=== PATIENT | male | born 1945 | race Caucasian/White ===

== ENCOUNTER → 2017-03-26 | Outpatient (CLI) | payer OTHER ==
[~2017-03-26] MED LIST: ASPEC81 PO; ATOR10TA82 PO; AVD5 PO; CHOL100010 PO; CLB200 PO; FBR PO; LSN5 PO; TRAM-10 PO; compound cream
--- NOTE | 2017-03-26 09:39 | DIAGNOSTIC IMAGING REPORT ---
R KNEE 1 OR 2 VIEWS ROUTINE CLINICAL HISTORY: Bilateral knee pain. COMPARISON: None FINDINGS: Alignment of the right knee is anatomic. No fractures identified. There is a possible small right knee joint effusion. There is moderate medial compartment joint space narrowing with osteophytosis. There is also joint space narrowing with osteophytosis of the patellofemoral compartment. IMPRESSION: 1. No acute fracture. 2. Moderate osteoarthritis within the medial and patellofemoral compartments of the right knee. 3. Possible small right knee joint effusion. Electronically signed by: Sharath Berry M.D. 03/26/2017 9:37 AM Dictated Date/Time: 03/26/2017 9:36 AM
--- NOTE | 2017-03-26 09:39 | DIAGNOSTIC IMAGING REPORT ---
LEFT ANKLE 3 VIEWS CLINICAL HISTORY: Left ankle pain. FINDINGS: 3 views of the left ankle are obtained. No prior studies are available for comparison at the time of dictation. The skeletal structures are osteopenic. No fracture is seen. There are large dorsal and plantar calcaneal enthesophytes. The ankle mortise is intact. Mild arthritic change is present along the medial aspect of the ankle joint space. No erosive disease is seen. Enthesophytes arise from the medial malleolus. Diffuse soft tissue edema is present throughout the imaged left lower extremity. There is no significant ankle joint effusion. Mild atherosclerotic calcification is observed in the regional arteries. IMPRESSION: 1. Diffuse soft tissue swelling with no acute bony abnormality identified. 2. Osteopenia, heel spurs, and arthritic change as above. Electronically signed by: Josh Carpio M.D. 03/26/2017 9:38 AM Dictated Date/Time: 03/26/2017 9:35 AM
--- NOTE | 2017-03-26 09:40 | DIAGNOSTIC IMAGING REPORT ---
L KNEE 1 OR 2 VIEWS ROUTINE CLINICAL HISTORY: Bilateral knee pain. COMPARISON: None FINDINGS: Alignment of the left knee is anatomic. No fracture or definite joint effusion is noted. There is minimal lateral component joint space narrowing. There may be patellofemoral compartment joint space narrowing, suboptimally assessed on this exam. No fracture or suspicious lesion is present. IMPRESSION: 1. No acute fracture. 2. Mild to moderate osteoarthritis of the left knee, most pronounced within the patellofemoral compartment. Electronically signed by: Sharath Berry M.D. 03/26/2017 9:38 AM Dictated Date/Time: 03/26/2017 9:38 AM
[2017-03-26 10:42] LABS: BASO % 0.4 %; BASO ABS # 0.02 K/uL (0-0.2); EOS % 3.4 %; EOS ABS # 0.19 K/uL (0-0.5); HEMATOCRIT 46.1 % (42-52); HEMOGLOBIN 15.7 g/dL (14.0-18.0); IG# 0.02 K/uL (0.00-0.02); LYMPH % 28.4 %; LYMPH ABS # 1.59 K/uL (1.2-3.4); MEAN CELL VOLUME 94.5 fL (80-100); MEAN CORPUSCULAR HEMOGLOBIN 32.2 pg (25-34); MEAN CORPUSCULAR HGB CONC 34.1 g/dl (32-36); MEAN PLATELET VOLUME 9.5 fL (7.4-10.4); MONO % 13.2 %; MONO ABS # 0.74 K/uL (0.11-0.59); NEUT % 54.2 %; NEUT ABS # 3.03 K/uL (1.4-6.5); PLATELET COUNT 276 K/uL (130-400); RED CELL DISTRIBUTION WIDTH CV 13.2 % (11.5-14.5); RED CELL DISTRIBUTION WIDTH SD 45.4 fL (36.4-46.3); WHITE BLOOD COUNT 5.59 K/uL (4.8-10.8)
[2017-03-26 10:57] LABS: ALBUMIN 3.6 gm/dl (3.4-5.0); ALT/SGPT 35 U/L (12-78); CREATININE 1.17 mg/dl (0.60-1.40)
[2017-03-26 11:00] LABS: ALKALINE PHOSPHATASE 81 U/L (45-117); AST/SGOT 29 U/L (15-37); TOTAL PROTEIN 7.4 gm/dl (6.4-8.2); TRANSFERRIN 264 mg/dl (200-360)
== END | disposition home or self-care (01) ==
LOC: C.RAD1850 09:13
PROVIDERS: ATTEND Internal Medicine Rheumatology
DX: K21.9 Gastro-esophageal reflux disease without esophagitis (principal); M25.561 Pain in right knee; M25.562 Pain in left knee; Z79.1 Long term (current) use of non-steroidal anti-inflammatories (NSAID)